=== PATIENT | male | born 1960 | race Caucasian/White ===

== ENCOUNTER 2017-11-23 11:40 | Day surgery (SDC) | payer OTHER ==
[2017-11-22 11:09] VITALS: BMI 27.9
[2017-11-23] MEDS ORDERED: Ondansetron HCl/PF 4 MG/2 ML Vial ONE (12:04)
[2017-11-23] MEDS ORDERED: PROPOFOL 200 MG/20 ML VIAL ONE (12:04)
[2017-11-23] MEDS ORDERED: Lidocaine 1% PF 5 ML VIAL ONE (12:04)
[2017-11-23] MEDS ORDERED: PHENYLEPHRINE-NS 100 MCG/ML 10 ML SYRINGE ONE (12:04)
[2017-11-23] MEDS ORDERED: ePHEDrine/0.9% NaCl/PF SYRINGE 50 mg/10 ml ONE (12:04)
[2017-11-23] MEDS ORDERED: Dexamethasone 20 MG/5 ML VIAL ONE (12:04)
[2017-11-23] MEDS ORDERED: Succinylcholine Chloride 20 MG/ML 10 ml SYRINGE FS ONE (12:04)
[2017-11-23] MEDS ORDERED: Fentanyl 100 MCG/2 ML VIAL ONE (13:18)
[2017-11-23] MEDS ORDERED: Midazolam HCl 2 mg/2 ml Vial ONE (13:18)
[2017-11-23] MEDS ORDERED: Lidocaine 1% w/Epinephrine 1:200K 30 ML VIAL ONE (13:33)
--- NOTE | 2017-11-23 21:53 | EKG ---
Test Reason : PREOP Blood Pressure : / mmHG Vent. Rate : 067 BPM Atrial Rate : 067 BPM P-R Int : 142 ms QRS Dur : 082 ms QT Int : 384 ms P-R-T Axes : 062 052 029 degrees QTc Int : 405 ms Normal sinus rhythm ST abnormality, possible digitalis effect vs. possible inferior ischemia Abnormal ECG No previous ECGs available Confirmed by ALEXA AGUILAR ([id number]) on 11/23/2017 9:52:55 PM Referred By: JUNE Confirmed By:ALEXA AGUILAR
--- NOTE | 2017-11-24 10:26 | OP ---
DATE OF PROCEDURE: 11/23/2017 SURGEON: Dr. Kings Loyd PREOPERATIVE DIAGNOSES: Primary hyperparathyroidism and right parathyroid mass. POSTOPERATIVE DIAGNOSIS: Right parathyroid adenoma. PROCEDURE PERFORMED: Neck exploration with right parathyroid adenoidectomy using laryngeal nerve mon itoring. PROCEDURE IN DETAIL: After consent was obtained, the patient was identified, brought to the operatin g room and placed on the table in supine position. General anesthesia was obtained with laryngeal ne rve monitoring endotracheal tube which was documented to be in good placement and functioning well. We then prepped and draped the patient and positioned him for surgery. An incision was made through a natural skin crease on the right side of the neck in the lower portion of the right side of the nec k with a 15 blade after it had been infiltrated with 1% lidocaine with 1:100,000 epinephrine. We mad e an incision and carried through the skin, subcutaneous tissues and platysma. Subplatysmal flaps we re elevated and the strap muscles were divided in midline and retracted medially. We then dissected along the capsule and was able to mobilize the thyroid gland and retract it to the medial region. Th is then allowed for exploration of the tracheoesophageal groove between the carotid vessels and the p retracheal plane. We were able to find a mass there that initially in the inferior aspect of the thy roid which turned out to be a thyroid nodule upon frozen section analysis. This then allowed access to the retrothyroid region where the adenoma was identified and dissected meticulously from the surro unding tissue. The recurrent laryngeal nerve was seen and preserved during the dissection. We then sent it for frozen section analysis which documented was parathyroid adenoma. We then closed the wou nd in layers including Monocryl for the deep layers and platysma and subdermal area and 6-0 Prolene f or the skin. The patient was then awakened, extubated, and taken to recovery room where he remained in stable condition prior to discharge home.
== END 2017-11-23 17:00 | disposition home or self-care (01) ==
LOC: SDC 11:40
PROVIDERS: ATTEND Specialist
PROC: 0GTN0ZZ Resection of Right Inferior Parathyroid Gland, Open Approach (ICD-10-PCS; principal; 2017-11-23)
DX: D35.1 Benign neoplasm of parathyroid gland (principal); I10 Essential (primary) hypertension; E78.00 Pure hypercholesterolemia, unspecified; J30.9 Allergic rhinitis, unspecified; Z79.82 Long term (current) use of aspirin; Z79.899 Other long term (current) drug therapy; Z91.013 Allergy to seafood; Z90.89 Acquired absence of other organs; Z98.890 Other specified postprocedural states; Z85.828 Personal history of other malignant neoplasm of skin
CPT/HCPCS: 88305; 88331; 88334; 93005; 93010; J1100; J2001; J2250; J2405; J2704; J3010

== ENCOUNTER 2019-11-08 21:31 | Emergency (ER) | payer SELFPAY ==
--- NOTE | 2019-11-08 22:22 | RAD ---
Exam: XR Shoulder Lt 3 View STANDARD HISTORY: Possible injury. Patient has injury to left shoulder. COMPARISON: None FINDINGS: The coracoclavicular and acromioclavicular distances are within normal limits. No acute fracture, dislocation, or other acute osseous abnormality is identified. IMPRESSION: No acute osseous abnormality is identified.
[2019-11-08] MEDS ORDERED: Ketorolac Tromethamine 30 MG/ML VIAL ONE (23:18)
== END 2019-11-08 23:44 | disposition home or self-care (01) ==
LOC: ERS 21:31
DX: S46.912A Strain of unspecified muscle, fascia and tendon at shoulder and upper arm level, left arm, initial encounter (principal); I10 Essential (primary) hypertension; W03.XXXA Other fall on same level due to collision with another person, initial encounter; Y93.68 Activity, volleyball (beach) (court)
CPT/HCPCS: 96372; J1885